=== PATIENT | male | born 1975 | race Caucasian/White ===

== ENCOUNTER → 2018-02-06 | Outpatient (CLI) | payer SELFPAY ==
[2017-10-09 07:43] VITALS: BP 174/95
[~2018-02-06] MED LIST: HYDR-2762 PO; MELO15TA23 PO; OXYC-323 PO
[2018-02-06 13:56] LABS: BASO % 0 % (0-3); EOS % 1 % (0-3); HEMATOCRIT 39.4 % (39.0-53.0); HEMOGLOBIN 13.8 g/dL (13.0-17.5); LYMPH # 1.3 x10^3/uL (1.0-4.8); LYMPH % 22 % (24-48); MEAN CORPUSCULAR HEMOGLOBIN 31 pg (25-35); MEAN CORPUSCULAR HGB CONC 35 g/dL (31-37); MEAN CORPUSCULAR VOLUME 88 fL (79-100); MONO # 0.5 x10^3/uL (0.0-1.1); MONO % 8 % (0-9); NEUT % 69 % (31-73); PLATELET COUNT 248 x10^3/uL (140-400); RED BLOOD COUNT 4.48 x10^6/uL (4.30-5.70); RED CELL DISTRIBUTION WIDTH 12.6 % (11.5-14.5); WHITE BLOOD COUNT 5.7 x10^3/uL (4.0-11.0)
[2018-02-06 13:57] LABS: BILIRUBIN,URINE NEGATIVE (NEG); CLARITY,URINE CLEAR; COLOR,URINE YELLOW; NITRITE,URINE NEGATIVE (NEG); PROTEIN,URINE NEGATIVE (NEG-TRACE); UROBILINOGEN,URINE 0.2 mg/dL (0.2 mg/dL)
[2018-02-06 14:06] LABS: PROTHROMBIN TIME PATIENT 13.7 SEC (11.7-14.0)
[2018-02-06 14:14] LABS: ALBUMIN 4.3 g/dL (3.4-5.0); CALCIUM 9.7 mg/dL (8.5-10.1); CREATININE 1.2 mg/dL (0.7-1.3); GFR 66.4; POTASSIUM 3.7 mmol/L (3.5-5.1)
[2018-02-06 14:14] LABS: RBC,URINE 0 /HPF (0-2)
[2018-02-06 14:15] LABS: BACTERIA,URINE 0 /HPF (0-FEW); SQUAMOUS EPITHELIAL CELL,UR FEW /LPF; WBC,URINE 0 /HPF (0-4)
[2018-02-07 05:16] LABS: HEMOGLOBIN A1C 5.1 % (4.8-5.6)
== END | disposition home or self-care (01) ==
LOC: SURGPAT 12:54
PROVIDERS: ATTEND Orthopaedic Surgery Sports Medicine
DX: Z01.818 Encounter for other preprocedural examination (principal); S42.292A Other displaced fracture of upper end of left humerus, initial encounter for closed fracture
CPT/HCPCS: 36415; 80048; 81001; 82040; 83036; 85025; 85610; 85651; 85730; 87641

== ENCOUNTER 2018-02-13 08:19 | Inpatient (IN) | payer SELFPAY ==
[2018-02-13] VITALS (7 sets, daily range): BP systolic 90–109; BP diastolic 58–66
[~2018-02-13] VITALS: Ht 182.9 cm; Wt 71.2 kg
[~2018-02-13 08:19] MED LIST changes: +BUPIVACAINE MPF 0.5% 30 ML VIAL. ONE; -HYDR-2762 PO; +HYDROmorphone 2 MG/ML VIAL IV PRN; +IV RINGERS,LACTATED 1000ML 1,000 ML IV SCH; +LIDOCAINE 1% PF 2 ML VIAL. ID PRN; +LIDOCAINE 1% PF 30 ML VIAL. ONE; -MELO15TA23 PO; +MORPHINE SULFATE 2 MG/ML VIAL. IV PRN; +ONDANSETRON PF 4 MG/2 ML VIAL. IV PRN; -OXYC-323 PO; +PROCHLORPERAZINE 10 MG/2 ML VIAL. IV PRN; +fentaNYL PF VIAL 100 MCG/2 ML VIAL IV PRN
[2018-02-13] MEDS ORDERED: MIDAZOLAM HCL/PF 2 MG/2 ML VIAL. ONE (08:59)
[2018-02-13] MEDS ORDERED: DEXAMETHASONE SOD PHOS 20 MG/5 ML VIAL. ONE (08:59)
[2018-02-13] MEDS ORDERED: ONDANSETRON PF 4 MG/2 ML VIAL. ONE (08:59)
[2018-02-13] MEDS ORDERED: PROPOFOL 20 ML IV ONE (08:59)
[2018-02-13] MEDS ORDERED: FAMOTIDINE 20 MG/2 ML VIAL ONE (08:59)
[2018-02-13] MEDS ORDERED: ROCURONIUM 50 MG/5 ML VIAL. ONE ×2 (08:59→11:01)
[2018-02-13] MEDS ORDERED: fentaNYL PF VIAL 100 MCG/2 ML VIAL ONE (08:59)
[2018-02-13] MEDS ORDERED: ROPIVacaine 0.5% PF 20 ML VIAL. ONE ×2 (09:36)
[2018-02-13] MEDS ORDERED: HYDR-2762 PO (09:43)
[2018-02-13] MEDS ORDERED: MELO15TA23 PO (09:43)
[2018-02-13] MEDS ORDERED: MELOXICAM 7.5 MG TABLET PO ONE ×2 (09:44→10:00)
[2018-02-13] MEDS ORDERED: HYDROcodone/APAP 7.5/325MG 1 TAB TABLET ONE (09:44)
[2018-02-13] MEDS ORDERED: HYDROcodone/APAP 7.5/325MG 1 TAB TABLET PO ONE (10:00)
[2018-02-13] MEDS ORDERED: ceFAZolin 2GM PREMIX 2 GM/50 ML BAG IV ONE (10:00)
[2018-02-13] MEDS ORDERED: TRANEXAMIC ACID 1,000 MG in IV NORMAL SALINE 50ML 50 ML INJ ONE ×4 (10:00)
[2018-02-13] MEDS ORDERED: traMADol 50 MG TABLET PO PRN ×2 (10:15)
[2018-02-13] MEDS ORDERED: HYDROcodone/APAP 7.5/325MG 1 TAB TABLET PO PRN (10:15)
[2018-02-13] MEDS ORDERED: DEXTROSE 50% 25 GM / 50ML DISP.SYRIN. IV PRN (10:15)
[2018-02-13] MEDS ORDERED: METOCLOPRAMIDE HCL 10 MG/2 ML VIAL. IV PRN (10:15)
[2018-02-13] MEDS ORDERED: ACETAMINOPHEN 325 MG TABLET. PO PRN (10:15)
[2018-02-13] MEDS ORDERED: oxyCODONE/APAP 5/325 1 TAB TABLET PO PRN (10:15)
[2018-02-13] MEDS ORDERED: 0.9 % SODIUM CHLORIDE 10 ML DISP.SYRIN. IV PRN (10:15)
[2018-02-13] MEDS ORDERED: PROCHLORPERAZINE 5 MG TABLET. PO PRN (10:15)
[2018-02-13] MEDS ORDERED: HYDROcodone/APAP 10/325 1 TAB TABLET PO PRN (10:15)
[2018-02-13] MEDS ORDERED: CALCIUM CARBONATE 500 MG TAB.CHEW PO PRN (10:15)
[2018-02-13] MEDS ORDERED: ZOLPIDEM 5 MG TABLET. PO PRN (10:15)
[2018-02-13] MEDS ORDERED: MORPHINE SULFATE 2 MG/ML VIAL. IV PRN (10:15)
[2018-02-13] MEDS ORDERED: oxyCODONE/APAP 7.5/325 1 TAB TABLET PO PRN (10:15)
[2018-02-13] MEDS ORDERED: MORPHINE SULFATE 5 MG, KETOROLAC 30MG VIAL 30 MG, ROPIVacaine 0.5% PF 60 ML, EPINEPHrin... INT ART ONE ×5 (11:00)
[2018-02-13] MEDS ORDERED: GLYCOPYRROLATE 1 MG/5 ML VIAL. ONE (12:33)
[2018-02-13] MEDS ORDERED: NEOSTIGMINE METHYLSULFATE 5 MG/5 ML SYRINGE. ONE (12:33)
[2018-02-13] MEDS ORDERED: SEVOFLURANE > 120 MINUTES. IH ONE (12:55)
--- NOTE | 2018-02-13 12:56 | PDOC4 ---
Operative Note Operative Note Date of procedure: 02/13/2018 Surgeon: Piotr Franco Mill Operator Head: Elis Gonsales Preoperative diagnosis: Closed left proximal humerus fracture dislocation, chronic Postoperative diagnosis: Same Procedure performed: Left shoulder hemiarthroplasty Anesthesia: Gen. 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 I discussion again with the patient regarding the risks, benefits, alternatives and rationale for the surgery and he wished to proceed. Description of procedure: Patient was greeted in the preoperative area by myself for the correct extremity was verified and marked. He was taken to the operative suite after his regional nerve block was placed by the anesthesiology team. Once in the operating room, he was transferred gently supine to the operating room table and secured to bed with all pressure points padded. He underwent successful induction of general anesthesia. We then set him up in a beachchair position with a large pad under his legs, secured to the bed, maintaining his C-spine in neutral position. We then proceeded prep and drape left upper extremity and shoulder girdle in our usual sterile fashion including Ioban at the periphery. After this, I palpated and marked surface anatomy and made my standard deltopectoral skin incision, dissecting subcutaneous tissues tissue with electrocautery, Metzenbaums and DeBakey pickups. Identified the cephalic vein and deltopectoral interval and mobilized this laterally. I incised the clavipectoral fascia in line with the skin incision. I then placed myself trying retractor after bluntly freeing up the subdeltoid interface. I then identified his biceps tendon and bicipital groove and open this. I performed a biceps tenodesis to the upper border of the pectoralis major with [id number] #2 Ethibond. I then opened the bicipital groove with the Metzenbaums, continuing this through the rotator interval. I then took down the subscapularis, tagging it with #2 Ethibond as I went. I took down with progressive external rotation and electrocautery. I then removed abundant fibrotic tissue and some callus as well as synovial tissue to identify the glenoid. I performed my release with circumferential scalpel around the glenoid rim, with the exception of posteriorly, my release was from 12:00 to proximally 6:00. I was able to see the cancellus bone from the humeral head but wasnt able to mobilize it to remove much from the anterior approach and therefore, I made an incision over his posterior shoulder and identified the interval between the supraspinatus and infraspinatus after incising the fascia. I then teased this apart with a Pheba and pickup and then incised capsule and 9 with the skin incision. I then placed my self-retaining retractor and was looking at the humeral head articular surface. I then took my time and remove this with a combination of osteotome and small Elieser. Once I was satisfied I had removed enough, inspected the defect then made a note that he would need to be plicated for stability. After this, I directed my attention back to the humeral stem I had difficulty identifying the appropriate starting point therefore brought in C -arm to identify an appropriate starting point and trajectory. I except this stem position due to the visible bone stock and maintaining cuff integrity. I impacted my trial stem and then trialed different head sizes and felt the above combination gave the best stability and gross appearance. After this, removed the trial components and thoroughly irrigated the operative field out and then impacted my stem into position with the head on it as well. I assembled this on the back table. This gave a good fit and fill. I was happy with the gross appearance. I then directed my attention to closing subscapularis through bone tunnels and reapproximating it to the proximal humerus. I then closed the rotator interval was simple interrupted #2 Ethibond. The capsule was plicated with #1 Vicryl in [id number] fashion. Inverted interrupted 2 was used for fascia and subcutaneous tissues tissue posterior incision followed by kathy. Subcutaneous tissues tissue was closed anteriorly with inverted interrupted 2-0 Vicryl followed by kathy for skin. Prior to wound closure, all counts correct 2. I did inject my periarticular mixture of the mc-incisional soft tissues. Surgery was tolerated well by the patient. No competitions. At the conclusion of the surgery, and abduction pillow sling was applied and he was laid gently supine. This was done after a sterile dressing was applied. Once he was laid supine, he was transferred gently supine to the recovery room cart and taken to PACU in a stable and extubated condition. Postoperative plan is to [facility] him [facility], antibiotic prophylaxis. Hell start his rehabilitation as well. PIOTR FRANCO II, MD Feb 13, 2018 12:56
--- NOTE | 2018-02-13 14:31 | RAD ---
EXAM: Left shoulder, 3 views. HISTORY: Arthroplasty. COMPARISON: None. FINDINGS: 3 views of the left shoulder obtained. There is a left shoulder arthroplasty. There is a proximal right humeral fracture. There is surrounding soft tissue gas and there are skin kathy due to recent surgery. IMPRESSION: Findings consistent with left arthroplasty placement and prior right proximal humeral fracture. Electronically signed by: Maryam Richards MD (02/13/2018 2:27 PM) [place] [id number]
[2018-02-13] MEDS: FERROUS SULFATE 325 MG TABLET. PO SCH (16:46)
[2018-02-13] MEDS: IV DEXTROSE 5 %-0.45 % NACL 1,000 ML IV SCH (16:46)
[2018-02-13] MEDS: CELECOXIB 100 MG CAPSULE. PO SCH (20:45)
[2018-02-14] MEDS: IV DEXTROSE 5 %-0.45 % NACL 1,000 ML IV SCH (01:16)
[2018-02-14 02:59] VITALS: BP 114/74
[2018-02-14] MEDS ORDERED: MAGNESIUM HYDROXIDE 2,400 MG/30 ML ORAL.SUSP. PO PRN (06:00)
[2018-02-14 06:33] VITALS: BP 93/60
[2018-02-14 07:31] LABS: HEMATOCRIT 27.6 % (39.0-53.0); HEMOGLOBIN 9.5 g/dL (13.0-17.5)
[2018-02-14] MEDS: CELECOXIB 100 MG CAPSULE. PO SCH (08:19)
[2018-02-14] MEDS: FERROUS SULFATE 325 MG TABLET. PO SCH (08:20)
--- NOTE | 2018-02-14 08:44 | PDOC ---
ORTHO PROGRESS NOTES Subjective Rubio tells me that his block recently wore off, he is not having much pain. Denies any other complaints Vitals Vital Signs Date Time Temp Pulse Resp B/P (MAP) Pulse Ox O2 Delivery O2 Flow Rate FiO2 02/14/18 08:26 Room Air 02/14/18 06:33 97.9 70 93/60 (71) 97 97.9 02/14/18 02:59 16 02/13/18 13:20 8 Labs Laboratory Tests Test 02/14/18 07:15 Hemoglobin 9.5 g/dL (13.0-17.5) Hematocrit 27.6 % (39.0-53.0) Mean Corpuscular Hemoglobin Concent 35 g/dL (31-37) Laboratory Tests Test 02/14/18 07:15 Hemoglobin 9.5 g/dL (13.0-17.5) Hematocrit 27.6 % (39.0-53.0) Mean Corpuscular Hemoglobin Concent 35 g/dL (31-37) Notes He is awake and alert. Incisions are clean. Motor and sensation intact median, radial, ulnar, axillary nerves. Left upper extremity is in a sling Assessment and Plan We will see how his pain control progresses today. He will receive physical therapy this morning. I'm okay if he goes home later today. LÁZARO FRANCO II, MD Feb 14, 2018 08:44
--- NOTE | 2018-02-14 08:45 | DISCH ---
DISCHARGE INSTRUCTIONS Condition on Discharge Condition on Discharge: Stable Activity After Discharge Activity Instructions for Disc: Activity as tolerated, Other, see below Other activity instructions: arm to remain in sling Bathing Instructions: Shower-keep dressing dry, No Tub Bath until see Lifting Instructions after Dis: No heavy lifting, No pulling or pushing, Do not lift >10 pounds Exercise Instruction after Dis: Walk 30 min, 5 x per week Driving Instructions after Dis: No driving for 2 months Weight Bearing Status after Di: Non weight bearing Diet after Discharge Diet after Discharge: Regular Wound Incision Care Wound/Incision Care: Ice to area for comfort, Keep wound/cast CDI, Do not change dressing Contacting the after DC Call your doctor for: Concerns you may have Follow-Up Follow up with: Ortiz in 2 wks LÁZARO FRANCO II, MD Feb 14, 2018 08:45
[2018-02-14] MEDS ORDERED: SENNOSIDES/DOCUSATE 8.6/50MG TABLET. PO SCH (09:00)
[2018-02-14] MEDS ORDERED: MULTIVITAMIN with MINERAL TABLET. PO SCH (09:00)
[2018-02-14] MEDS ORDERED: OXYC-323 PO (10:25)
[2018-02-14 11:27] VITALS: BP 104/73
--- NOTE | 2018-02-14 13:56 | PDOC3 ---
Discharge Summary Visit Information Date of Admission: Feb 13, 2018 Date of Discharge: Feb 14, 2018 Admitting Diagnosis: left proximal humerus fracture, chronic malunion Brief Hospital Course Allergies Allergies Coded Allergies Type Severity Reaction Last Updated Verified No Known Drug Allergies 02/13/18 No Vital Signs Vital Signs Date Time Temp Pulse Resp B/P (MAP) Pulse Ox O2 Delivery O2 Flow Rate FiO2 02/14/18 11:30 97.2 97.2 02/14/18 11:27 88 18 104/73 (83) 96 Room Air 02/13/18 13:20 8 Lab Results Laboratory Tests Test 02/14/18 07:15 Hemoglobin 9.5 g/dL (13.0-17.5) Hematocrit 27.6 % (39.0-53.0) Mean Corpuscular Hemoglobin Concent 35 g/dL (31-37) Laboratory Tests Test 02/14/18 07:15 Hemoglobin 9.5 g/dL (13.0-17.5) Hematocrit 27.6 % (39.0-53.0) Mean Corpuscular Hemoglobin Concent 35 g/dL (31-37) Brief Hospital Course Mr. Trinh is a 42 old who was asked to see initially in consultation months ago when he was admitted for general medical issues, he was discovered to have bilateral proximal humeral fracture dislocations of unknown duration. He underwent right shoulder hemiarthroplasty and recovered well from this. He felt ready to proceed with the left side. We reviewed the risks, benefits, and alternatives and he elected to proceed. He tolerated surgery well and recovered well from anesthesia in the PACU was taken to the surgical floor for care and observation. His postoperative course was essentially uneventful. His nerve block wore off and he had normal motor and sensation in his operative extremity. His incisions were intact. Left upper extremity was in an abduction pillow sling. He was having normal bowel and bladder function, remained hemodynamically stable and was tolerating a regular diet. He did receive physical and occupational therapy as well. Discharge Information Condition at Discharge: Stable Follow Up: Weeks Disposition/Orders: D/C to Home Scheduled Meloxicam (Meloxicam) 15 Mg Tablet, 1 TAB PO DAILY, #30 Ref 2 (Reported) Entered as Reported by: SHUN TOLENTINO on 02/13/18942 Last Taken: Unknown Dose on 02/13/18929 Last Action: HELD on 02/13/18 1016 by LEROY FRANCO MD Scheduled PRN Oxycodone/Apap 5-325 (Percocet 5-325 Mg Tablet) 1 Each Tablet, 1 TAB PO PRN Q3HRS PRN for PAIN, #50 Ref 0 (Reported) Entered as Reported by: CIPRIANO DOBBS on 02/14/18 1025 Discontinued Medications Hydrocodone Bit/Acetaminophen (Hydrocodone-Apap 7.5-325 ) 1 Each Tablet, 1 TAB PO PRN Q6HRS PRN for PAIN, Ref 0 (Reported) Entered as Reported by: SHUN TOLENTINO on 02/13/18 0943 Last Taken: Unknown Dose on 02/13/18 0930 Last Action: HELD on 02/13/18 1016 by LEROY FRANCO MD Patient Instructions Patient Instructions We will get him started on physical therapy will see him back here in 2 weeks. His arm is to remain in sling, nonweightbearing. He can perform the PT instructions as instructed by the therapist. We will see him back in 2 weeks, sooner should a problem arise. LÁZARO FRANCO II, MD Feb 14, 2018 13:56
[2018-02-14] MEDS ORDERED: BISACODYL 10 MG SUPP.RECT. PR PRN (16:00)
--- NOTE | 2018-02-16 13:11 | PATHOLOGY ---
[facility] Accession Number: [id number] . 01 Material submitted: . LEFT SHOULDER TISSUE . 01 Clinical history: . None provided . 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 - Increased vascularity of synovial tissue and reactive fibrosis of soft tissues. . (JPM:guevara; 02/15/2018) MBR/02/16/2018 . 02 Electronically signed: . Henry Alatorre MD, Pathologist NPI- [id number] . 01 Gross description: . The specimen is received in formalin, labeled "Ha Trinh, left shoulder tissue", are multiple irregular fragments of rios-yellow to brown-red, hemorrhagic bone partially covered by a rios-pink smooth articular cartilage measuring 4.3 x 2.7 x 1.5 cm in aggregate. Electronic Health Records Specialist sections of the bone are submitted in A1 after decalcification. Also received is a rios-red papillary, rubbery soft tissue 2.0 x 1.0 x 0.5 cm, bisected and entirely submitted in A2. ([facility]; 02/13/2018) SHS/SHS . 02 Pathologist provided ICD-10: M87.80 . 02 CPT . 584700, 081025 Specimen Comment: A courtesy copy of this report has been sent to Specimen Comment: [phone]. Specimen Comment: Report sent to Performed at: 01 [facility] [address], [place] [id number] MD Royal Negrete MD Phone: [phone] Performed at: 02 [facility] [address], [place] [id number] MD Henry Alatorre MD Phone: [phone]
== END 2018-02-14 12:54 | disposition home or self-care (01) | DRG 483 ==
LOC: SURG 08:19 → 4 SOUTHEST 10:12
PROVIDERS: ADMIT Orthopaedic Surgery Sports Medicine; ATTEND Orthopaedic Surgery Sports Medicine
PROC: 0RRK0J6 Replacement of Left Shoulder Joint with Synthetic Substitute, Humeral Surface, Open Approach (ICD-10-PCS; principal; 2018-02-13 10:15)
DX: S42.202A Unspecified fracture of upper end of left humerus, initial encounter for closed fracture (principal); X58.XXXA Exposure to other specified factors, initial encounter; Y93.89 Activity, other specified; Y92.89 Other specified places as the place of occurrence of the external cause; Y99.8 Other external cause status
CPT/HCPCS: 36415; 73030; 76000; 85014; 85018; 86850; 86900; 86901; 88304; 88311; 99406; A7015; G0378; J0171; J0690; J1100; J1885; J2250; J2270; J2405; J2704; J2710; J2795; J3010; J3490; J7030; J7120; S0028; 97110; 97530; C1769